=== PATIENT | male | born 2000 | race African-American/Black ===

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

== ENCOUNTER → 2019-01-30 | Outpatient (CLI) | payer SELFPAY ==
[2019-01-30 11:03] LABS: ABSOLUTE BASOPHILS # (AUTO) 0.1 10^3/uL (0.0-0.2); ABSOLUTE EOSINOPHILS # (AUTO) 0.2 10^3/uL (0.0-0.6); ABSOLUTE LYMPHOCYTES (AUTO) 2.3 10^3/uL (0.5-4.7); ABSOLUTE MONOCYTES (AUTO) 0.7 10^3/uL (0.1-1.4); ABSOLUTE NEUT (AUTO) 5.1 10^3/uL (1.7-8.2); BASOPHILS % (AUTO) 0.7 % (0-2); HEMATOCRIT 42.9 % (37.9-51.0); HEMOGLOBIN 14.1 g/dL (13.5-17.0); LYMPHOCYTES % (AUTO) 27.4 % (13-45); MEAN CORPUSCULAR HGB CONC 32.7 g/dL (32.0-36.0); MEAN CORPUSCULAR VOLUME 79 fl (80-97); MONOCYTES % (AUTO) 7.9 % (3-13); PLATELET COUNT 248 10^3/uL (150-450); RED BLOOD COUNT 5.41 10^6/uL (4.35-5.55); RED CELL DISTRIBUTION WIDTH 15.5 % (11.5-14.0); TOTAL CELLS COUNTED % (AUTO) 100 %; WHITE BLOOD COUNT 8.3 10^3/uL (4.0-10.5)
[2019-01-30 11:27] LABS: ALANINE AMINOTRANSFERASE 50 U/L (10-40); ASPARTATE AMINO TRANSFERASE 29 U/L (10-45); GAMMA-GLUTAMYL TRANSFERASE 40 U/L (11-34)
[2019-01-31 08:37] LABS: HEPATITIS A AB IGM Negative (Negative); HEPATITIS B CORE AB IGM Negative (Negative); HEPATITS B SURFACE ANTIGEN Negative (Negative)
[2019-02-02 07:07] LABS: HEPATITIS C VIRUS ANTIBODY <0.1 s/co ratio (0.0-0.9)
[2019-02-02 15:37] LABS: HGB A 97.7 % (96.4-98.8); HGB A2 2.3 % (1.8-3.2); HGB SOLUBILITY RESULT Negative (Negative)
== END ==
LOC: OD 09:55
PROVIDERS: ATTEND Family Medicine Geriatric Medicine
DX: R79.89 Other specified abnormal findings of blood chemistry (principal); R74.8 Abnormal levels of other serum enzymes; Z79.899 Other long term (current) drug therapy
CPT/HCPCS: 36415; 80074; 82977; 83020; 84450; 84460; 85025

== ENCOUNTER → 2019-09-07 | Outpatient (CLI) | payer MEDICAID ==
[2019-09-07 11:04] LABS: ABSOLUTE BASOPHILS # (AUTO) 0.1 10^3/uL (0.0-0.2); ABSOLUTE EOSINOPHILS # (AUTO) 0.3 10^3/uL (0.0-0.6); ABSOLUTE LYMPHOCYTES (AUTO) 2.8 10^3/uL (0.5-4.7); ABSOLUTE NEUT (AUTO) 7.2 10^3/uL (1.7-8.2); EOSINOPHILS % (AUTO) 2.4 % (0-6); HEMATOCRIT 42.4 % (37.9-51.0); HEMOGLOBIN 13.7 g/dL (13.5-17.0); LYMPHOCYTES % (AUTO) 24.8 % (13-45); MEAN CORPUSCULAR HGB CONC 32.4 g/dL (32.0-36.0); MEAN CORPUSCULAR VOLUME 80 fl (80-97); MONOCYTES % (AUTO) 8.4 % (3-13); PLATELET COUNT 264 10^3/uL (150-450); RED BLOOD COUNT 5.28 10^6/uL (4.35-5.55); RED CELL DISTRIBUTION WIDTH 15.2 % (11.5-14.0); SEGMENTED NEUTROPHILS % (AUTO) 63.4 % (42-78); TOTAL CELLS COUNTED % (AUTO) 100 %; WHITE BLOOD COUNT 11.3 10^3/uL (4.0-10.5)
[2019-09-07 11:22] LABS: ASPARTATE AMINO TRANSFERASE 34 U/L (17-59)
[2019-09-08 07:37] LABS: HEPATITS B SURFACE ANTIGEN Negative (Negative)
[2019-09-08 11:14] LABS: HEPATITIS C VIRUS ANTIBODY <0.1 s/co ratio (0.0-0.9)
[2019-09-08 13:37] LABS: HSV 1 IGM AB <1:10 titer (<1:10)
[2019-09-08 14:44] LABS: HSV 2 IGM AB <1:10 titer (<1:10)
== END ==
LOC: OD 10:03
PROVIDERS: ATTEND Family Medicine Geriatric Medicine
DX: R74.8 Abnormal levels of other serum enzymes (principal); R79.89 Other specified abnormal findings of blood chemistry; Z79.899 Other long term (current) drug therapy
CPT/HCPCS: 36415; 80074; 82977; 84450; 84460; 85025; 86592; 86695; 86696; 86701